=== PATIENT | male | born 1995 | race Caucasian/White ===

== ENCOUNTER 2022-03-20 10:30 | Inpatient (IN) ==
[2022-03-20 11:19] LABS: Bacteria,Urine Few per hpf (None-Few); Bilirubin,Urine Negative (Negative); Blood,Urine Negative (Negative); Clarity,Urine Clear (Clear); Color,Urine Light-Yellow (Yellow); Glucose,Urine (UA) Normal (Normal); Ketones,Urine Negative (Negative); Leukocyte Esterase,Urine Trace (Negative); Mucus,Urine Few per lpf (None-Few); Nitrite,Urine Negative (Negative); PH,Urine 7.5 pH Units (5.0-8.0); Protein,Urine Negative (Neg-Trace); RBC,Urine 0-3 per hpf (0-3); Specific Gravity,Urine 1.021 (1.010-1.025); Urobilinogen,Urine Normal (Normal)
[2022-03-20 11:24] LABS: Amphetamine Screen,Urine Negative ng/mL (Cutoff=1000); Barbiturate Screen,Urine Negative ng/mL (Cutoff=200); Benzodiazepines Screen,Urine Negative ng/mL (Cutoff=200); Cannabinoid Screen,Urine Positive ng/mL (Cutoff = 50); Cocaine Screen,Urine Negative ng/mL (Cutoff= 300); Opiate Screen,Urine Negative ng/mL (Cutoff=300); Phencyclidine Screen,Urine Negative ng/mL (Cutoff=25)
[2022-03-20 11:41] LABS: Basophils # 0.1 K/mcL (0.0-0.2); Basophils % 0.8 %; Eosinophils # 0.2 K/mcL (0.0-0.6); Eosinophils % 3.4 %; Hematocrit 47.7 % (37.5-50.1); Hemoglobin 16.3 g/dL (12.9-16.9); Immature Granulocytes % 0.5 % (0-4); Lymphocytes # 1.5 K/mcL (0.6-4.6); Lymphocytes % 24.6 %; Mean Corpuscular HGB Conc 34.2 g/dL (31.6-35.5); Mean Corpuscular Hemoglobin 30.2 pg (28.0-33.3); Mean Corpuscular Volume 88.5 fL (83.0-100.0); Mean Platelet Volume 9.5 fL (9.4-12.4); Monocytes # 0.5 K/mcL (0.0-1.3); Monocytes % 8.8 %; Neutrophils # 3.8 K/mcL (1.6-8.9); Platelet Count 202 K/mcL (140-400); Red Blood Count 5.39 M/mcL (4.19-5.50); Red Cell Distribution Width 12.9 % (11.5-14.5); Segmented Neutrophils % 61.9 %; White Blood Count 6.2 K/mcL (4.3-11.1)
[2022-03-20 12:11] LABS: Acetaminophen < 10 mcg/mL (10-20); BUN/Creatinine Ratio 13 (6-26); Blood Urea Nitrogen 11 mg/dL (6-20); Calcium 9.3 mg/dL (8.6-10.3); Carbon Dioxide 28 mEq/L (23-29); Chloride 106 mEq/L (98-107); Ethanol < 10 mg/dL (Less than 10); Glucose 113 mg/dL (70-105); Osmolality,Calculated 286 (280-300); Potassium 4.1 mEq/L (3.5-5.1); Salicylate < 2.5 mg/dL (15.0-30.0); Sodium 138 mEq/L (136-145); eGFR For African Americans > 60 (> 60); eGFR For Non-African Americans > 60 (> 60)
[2022-03-20 12:15] LABS: Thyroid Stimulating Hormone 0.482 mcIU/mL (0.340-5.600)
[2022-03-20 15:12] LABS: Influenza A PCR Negative (Negative); Influenza B PCR Negative (Negative); Resp. Syncytial Virus PCR Negative (Negative)
[2022-03-20 15:32] LABS: SARS-CoV-2 by PCR (In House) Negative (Negative)
[2022-03-20] MEDS ORDERED: hydrOXYzine pamoate 25 MG CAPSULE PO PRN (15:46)
[2022-03-20] MEDS ORDERED: haloperidoL 5 MG TABLET PO PRN (15:46)
[2022-03-20] MEDS ORDERED: *HR* LORazepam 1 MG TABLET PO PRN (15:46)
[2022-03-20] MEDS ORDERED: *HR* LORazepam 2 MG/ML VIAL IM PRN (15:46)
[2022-03-20] MEDS ORDERED: Haloperidol Lactate 5 MG/ML VIAL IM PRN (15:46)
[2022-03-20] MEDS: Nicotine 2 MG GUM BC PRN (19:55)
[2022-03-20] MEDS: OLANZapine 10 MG TAB.RAPDIS PO SCH (20:33)
[2022-03-20] MEDS: Acetaminophen 325 MG TABLET PO PRN (21:37)
[2022-03-20] MEDS: traZODone 50 MG TABLET PO PRN (23:01)
[2022-03-21] MEDS ORDERED: FLUoxetine HCl Oral Soln 20 MG/5 ML UDC GTUBE SCH (09:00)
[2022-03-21] MEDS: Cholecalciferol (D-3) 1,000 UNIT (25MCG) TABLET PO SCH (09:08)
[2022-03-21] MEDS: Nicotine 2 MG GUM BC PRN ×2 (15:33→19:15)
[2022-03-21] MEDS: OLANZapine 10 MG TAB.RAPDIS PO SCH (20:15)
[2022-03-21] MEDS: traZODone 50 MG TABLET PO PRN (21:52)
[2022-03-21] MEDS: Acetaminophen 325 MG TABLET PO PRN (21:52)
[2022-03-22] MEDS: Cholecalciferol (D-3) 1,000 UNIT (25MCG) TABLET PO SCH (08:09)
[2022-03-22] MEDS ORDERED: FLUoxetine HCl Oral Soln 20 MG/5 ML UDC PO SCH (09:00)
[2022-03-22 09:25] VITALS: BP 138/97; PULSE 56; TEMP 97.6; O2SAT 96
[2022-03-22] MEDS ORDERED: Acetaminophen 325 MG TABLET PO PRN (15:46)
== END 2022-03-22 12:38 | disposition home or self-care (01) | DRG 753 ==
LOC: EMEROOARM 10:30 → 1ANU 16:03
PROVIDERS: ADMIT Psychiatry & Neurology Neurology; ATTEND Psychiatry & Neurology Neurology